=== PATIENT | female | born 2000 | race Caucasian/White ===

== ENCOUNTER 2018-10-20 09:31 | Observation (INO) ==
--- NOTE | 2018-10-20 09:57 | ED ---
HPI General Chief Complaint: Seizure Stated Complaint: Poss seizure Time Seen by Provider: 10/20/18 09:53 Source: family and EMS Mode of arrival: EMS Limitations: altered mental status History of Present Illness HPI Narrative: 18-year-old female patient with history of autism, poor verbal skills, presents to the ER today brought in by EMS after patient's father witnessed an apparent seizure, and then she was unresponsive for a few minutes, he had started CPR because he thought that she was not breathing, but then apparently she started to breathe on her own and had a pulse. EMS states that she is currently awake, but nonverbal to them, which apparently is her baseline according to her mother. This is her first seizure, no previous history. She apparently has been behaving normally prior to this episode. Modifying Factors: None Associated Signs & Symptoms: Seizure new onset Risk Factors: Autism history Related Data Home Medications Medication Instructions Recorded Confirmed No Known Home Medications 10/20/18 10/20/18 Allergies Allergy/AdvReac Type Severity Reaction Status Date / Time No Known Allergies Allergy Verified 10/20/18 10:11 Review of Systems ROS Unobtainable ROS Unobtainable: unobtainable due to mental condition and unobtainable due to mental status PMFSH History History Provided By: Family Member and [employer]er / EMT Medical History Medical History No significant past surgical history (Acute) Autism (Acute) Social History Social History Substance History: No History of Abuse Second Hand Smoke Exposure: No Smoking Status: Never smoker How Often Do You Have a Drink Containing Alcohol: Never Recent Travel in [facility] within the Last 8 Weeks: No Recent Out of Country Travel within the Last 8 Weeks: No Exam Narrative Exam Narrative: GENERAL: Autistic young female patient currently and mild distress. Awake, alert, nonverbal. SKIN: Focused skin assessment warm/dry. HEAD: Atraumatic. Normocephalic. EYES: Pupils equal and round. No scleral icterus. No injection or drainage. ENT: No nasal bleeding or discharge. Mucous membranes pink and moist. NECK: Trachea midline. No JVD. CARDIOVASCULAR: Regular rate and rhythm. No murmur appreciated. RESPIRATORY: No accessory muscle use. Clear to auscultation. Breath sounds equal bilaterally. GASTROINTESTINAL: Abdomen soft, non-tender, nondistended. Hepatic and splenic margins not palpable. MUSCULOSKELETAL: No obvious deformities. No clubbing. No cyanosis. No edema. NEUROLOGICAL: Awake and alert. Unable to follow commands, unable to assess fully, appears to be moving all 4 extremities. PSYCHIATRIC: Autistic, nonverbal, baseline. Course Initial Documented Vital Signs Pulse Rate 96 H 10/20/18 09:53 Pulse Oximetry 100 10/20/18 09:53 Last Documented Vital Signs Temperature 97.8 F 10/20/18 10:57 Pulse Rate 94 H 10/20/18 10:57 Respiratory Rate 16 10/20/18 10:57 Blood Pressure 118/70 10/20/18 10:57 Pulse Oximetry 100 10/20/18 10:57 Medical Decision Making MDM Narrative Medical decision making narrative: EKG shows a sinus rhythm. Vital signs are stable in the ER. Lab work was fairly unremarkable and CT of the brain did not show any signs of acute intracranial processes. She is back to her baseline according to mom in the ER. At this point, this appears to be a new onset seizure and my plan would be to admit the patient for further evaluation. Case is discussed with family practice resident service for admission. Medical Screen Exam Complete: Yes Emergency Medical Condition: Yes Differential Diagnosis Differential Diagnosis: New onset seizure versus electrolyte abnormalities versus acute intracranial processes Lab Data Lab results reviewed: Yes I reviewed the patient's lab results. Result diagrams: 10/20/18 10:00 10/20/18 10:00 POC Results POC Urine Results Negative Lab Results 10/20/18 10/20/18 10/20/18 Range/Units 10:00 10:00 10:00 WBC 7.9 (4.0-11.0) th/mm3 RBC 4.44 (4.00-5.30) mil/mm3 Hgb 11.3 L (11.6-15.3) gm/dL Hct 35.7 (35.0-46.0) % MCV 80.4 (80.0-100.0) fL MCH 25.4 L (27.0-34.0) pg MCHC 31.6 L (32.0-36.0) % RDW 13.6 (11.6-17.2) % Plt Count 338 (150-450) th/mm3 MPV 8.2 (7.0-11.0) fL Neut % (Auto) 79.1 H (16.0-70.0) % Lymph % (Auto) 13.1 (9.0-44.0) % [place] % (Auto) 4.3 (0.0-8.0) % Eos % (Auto) 2.6 (0.0-4.0) % Baso % (Auto) 0.9 (0.0-2.0) % Neut # (Auto) 6.2 (1.8-7.7) th/mm3 Lymph # (Auto) 1.0 (1.0-4.8) th/mm3 [place] # (Auto) 0.3 (0.0-0.9) th/mm3 Eos # (Auto) 0.2 (0.0-0.4) th/mm3 Baso # (Auto) 0.1 (0.0-0.2) th/mm3 WBC Differential . Differential Comment Auto diff final Sodium 140 (136-145) meq/L Potassium 4.1 (3.5-5.1) meq/L Chloride 106 (98-107) meq/L Carbon Dioxide 27.6 (21.0-32.0) meq/L Anion Gap 6 (5-15) meq/L BUN 8 (7-18) mg/dL Creatinine 0.62 (0.50-1.00) mg/dL Estimated GFR Greater than 89 (>89) mL/min Random Glucose 95 (74-106) mg/dL Calcium 8.8 (8.5-10.1) mg/dL Magnesium 2.0 (1.5-2.5) mg/dL Urine Color (Yellw/Straw) Urine Clarity (Clear) Urine pH (5.0-8.5) Ur Specific [place] (1.002-1.035) Urine Protein (Neg-Trace) mg/dL Urine Glucose (UA) (Negative) mg/dL Urine Ketones (Negative) mg/dL Urine Occult Blood (Negative) Urine Nitrate (Negative) Urine Bilirubin (Negative) Urine Urobilinogen (Less than 2) mg/dL Ur Leukocyte Esterase (Negative) Urine RBC (0-3) /hpf Urine WBC (0-5) /hpf Ur Squamous Epith Cells (0-5) /hpf Urine Mucus (Occasional) /lpf Ur Microscopic Review Urine Opiates Screen Neg (Neg) Ur Barbiturates Screen Neg (Neg) Ur Amphetamines Screen Neg (Neg) U Benzodiazepines Scrn Neg (Neg) Urine Cocaine Screen Neg (Neg) U Cannabinoids Screen Neg (Neg) 10/20/18 Range/Units 10:00 WBC (4.0-11.0) th/mm3 RBC (4.00-5.30) mil/mm3 Hgb (11.6-15.3) gm/dL Hct (35.0-46.0) % MCV (80.0-100.0) fL MCH (27.0-34.0) pg MCHC (32.0-36.0) % RDW (11.6-17.2) % Plt Count (150-450) th/mm3 MPV (7.0-11.0) fL Neut % (Auto) (16.0-70.0) % Lymph % (Auto) (9.0-44.0) % [place] % (Auto) (0.0-8.0) % Eos % (Auto) (0.0-4.0) % Baso % (Auto) (0.0-2.0) % Neut # (Auto) (1.8-7.7) th/mm3 Lymph # (Auto) (1.0-4.8) th/mm3 [place] # (Auto) (0.0-0.9) th/mm3 Eos # (Auto) (0.0-0.4) th/mm3 Baso # (Auto) (0.0-0.2) th/mm3 WBC Differential Differential Comment Sodium (136-145) meq/L Potassium (3.5-5.1) meq/L Chloride (98-107) meq/L Carbon Dioxide (21.0-32.0) meq/L Anion Gap (5-15) meq/L BUN (7-18) mg/dL Creatinine (0.50-1.00) mg/dL Estimated GFR (>89) mL/min Random Glucose (74-106) mg/dL Calcium (8.5-10.1) mg/dL Magnesium (1.5-2.5) mg/dL Urine Color Yellow (Yellw/Straw) Urine Clarity Clear (Clear) Urine pH 7.0 (5.0-8.5) Ur Specific [place] 1.018 (1.002-1.035) Urine Protein Negative (Neg-Trace) mg/dL Urine Glucose (UA) Negative (Negative) mg/dL Urine Ketones Negative (Negative) mg/dL Urine Occult Blood Negative (Negative) Urine Nitrate Negative (Negative) Urine Bilirubin Negative (Negative) Urine Urobilinogen Less than 2 (Less than 2) mg/dL Ur Leukocyte Esterase Negative (Negative) Urine RBC 1 (0-3) /hpf Urine WBC 1 (0-5) /hpf Ur Squamous Epith Cells 3 (0-5) /hpf Urine Mucus Few H (Occasional) /lpf Ur Microscopic Review Not Reportable Urine Opiates Screen (Neg) Ur Barbiturates Screen (Neg) Ur Amphetamines Screen (Neg) U Benzodiazepines Scrn (Neg) Urine Cocaine Screen (Neg) U Cannabinoids Screen (Neg) Imaging Data Attestation: I personally reviewed and interpreted this imaging study as follows : Radiologist's impression: Head CT 10/20/18 09:53 CONCLUSION: 1. Diffuse sinusitis. Otherwise negative exam. . ECG Data Attestation: I personally reviewed and interpreted this ECG as follows: Interpretation: EKG shows NSR, no ST elevation or depression, and no arrhythmias. No significant T-wave inversions. Discharge Plan Discharge Disposition Patient Disposition: ED Admit(ED Internal Use Only) Discharge Condition Condition: Stable Discharge Order Discharge Orders: ED Use Only Admit Order (Routine); Ordered 10/20/18 Ordered By: Juan Yu Discharge Details Anticipated Discharge Date: 10/20/18 Diagnosis: New onset seizure Physicians Team ED Provider: Juan Yu Primary Care Provider: Primary Care Lami,Aida Rxs /Orders / Referrals /Forms Prescriptions: No Action No Known Home Medications RF: 0 Status ED Status: With Doctor
[2018-10-20 10:19] LABS: Baso # (Auto) 0.1 th/mm3 (0.0-0.2); Baso % (Auto) 0.9 % (0.0-2.0); Eos # (Auto) 0.2 th/mm3 (0.0-0.4); Eos % (Auto) 2.6 % (0.0-4.0); Hematocrit 35.7 % (35.0-46.0); Hemoglobin 11.3 gm/dL (11.6-15.3); Lymph % (Auto) 13.1 % (9.0-44.0); Mean Corpuscular HGB Conc 31.6 % (32.0-36.0); Mean Corpuscular Hemoglobin 25.4 pg (27.0-34.0); Mean Corpuscular Volume 80.4 fL (80.0-100.0); Mean Platelet Volume 8.2 fL (7.0-11.0); Mono # (Auto) 0.3 th/mm3 (0.0-0.9); Mono % (Auto) 4.3 % (0.0-8.0); Neut # (Auto) 6.2 th/mm3 (1.8-7.7); Neut % (Auto) 79.1 % (16.0-70.0); Platelet Count 338 th/mm3 (150-450); Red Blood Count 4.44 mil/mm3 (4.00-5.30); Red Cell Distribution Width 13.6 % (11.6-17.2); White Blood Count 7.9 th/mm3 (4.0-11.0)
[2018-10-20 10:33] LABS: Bilirubin,Urine Negative (Negative); Clarity,Urine Clear (Clear); Color,Urine Yellow (Yellw/Straw); Glucose,Urine (UA) Negative (Negative); Leukocyte Esterase,Urine Negative (Negative); Mucus,Urine Few /lpf (Occasional); Nitrite,Urine Negative (Negative); Specific Gravity,Urine 1.018 (1.002-1.035); Squamous Epithelial Cell,Urine 3 /hpf (0-5)
[2018-10-20 10:36] LABS: Amphetamine Screen,Urine Neg (Neg); Barbiturate Screen,Urine Neg (Neg); Cannabinoid Screen,Urine Neg (Neg); Cocaine Screen,Urine Neg (Neg)
[2018-10-20 10:37] LABS: Anion Gap 6 meq/L (5-15); Blood Urea Nitrogen 8 mg/dL (7-18); Calcium 8.8 mg/dL (8.5-10.1); Carbon Dioxide 27.6 meq/L (21.0-32.0); Chloride 106 meq/L (98-107); Glomerular Filtration Rate Greater Than 89 mL/min (>89); Glucose,Random 95 mg/dL (74-106); Opiate Screen,Urine Neg (Neg); Potassium 4.1 meq/L (3.5-5.1); Sodium 140 meq/L (136-145)
--- NOTE | 2018-10-20 11:20 | CT ---
EXAM DATE: 10/20/2018 11:11 AM EST AGE/SEX: 18 years / Female INDICATIONS: Seizure. CLINICAL DATA: This is the patient's initial encounter. Patient reports that signs and symptoms have been present for 1 day and indicates a pain score of 0/10. MEDICAL/SURGICAL HISTORY: . Autism. None. RADIATION DOSE: 41.58 CTDI (mGy) COMPARISON: No prior exams available for comparison. TECHNIQUE: CT of the head without contrast. Using automated exposure control and adjustment of the mA and/or kV according to patient size, radiation dose was kept as low as reasonably achievable to ob tain optimal diagnostic quality images. DICOM format image data is available electronically for revi ew and comparison. FINDINGS: Cerebrum: The ventricles are normal for age. No evidence of midline shift, mass lesion, hemorrhage or acute infarction. No extraaxial fluid collections are seen. Posterior Fossa: The cerebellum and brainstem are intact. The 4th ventricle is midline. The cerebe llopontine angle is unremarkable. Extracranial: The visualized portion of the orbits is intact. There is moderate bilateral mucoperios teal thickening identified within the bilateral maxillary sinuses as well as the ethmoid air cells. A ir-fluid levels are seen within the sphenoid sinuses. The frontal sinuses demonstrate mild mucoperios teal thickening. Skull: The calvaria is intact. No evidence of skull fracture. CONCLUSION: 1. Diffuse sinusitis. Otherwise negative exam. . Electronically signed by: Shaylee Russo MD Board Certified Radiologist 10/20/2018 11:19 AM JIHAN Hinojosa
--- NOTE | 2018-10-20 11:59 | P.HPFP ---
History of Present Illness Primary Care Physician: No Primary Care Physician <Sd Ferreira - 10/21/18 19:02> No Primary Care Physician <Gabriela Weller - 10/20/18 11:59> History of Present Illness: 18 year old female with PMH of autism presents with new onset seizure that happened around 8:45 am. Mom was not present for witnessed seizure and patient is non verbal. Father witnessed seizure. Per dad, the patient was sitting down and watching music videos. She usually bobs her head at baseline, and dad thought initially that she was bobbing her head to the music. She then started twitching her arms first and then progressed to her whole body. Her eyes rolled back into her head and she seemed to lose consciousness. Denies head trauma. Dad states that at the time she stopped breathing, and he started doing mouth to mouth resuscitation through her nose and tried to do some chest compression. He said that the episode lasted 15 minutes but mom questions the length of time the daughter seized and believes it was 5-10 minutes. EMS arrived within 5 minutes, she seemed to be alert and back to baseline at that time. Glucose test was normal. Vomited x2 since arrival. Slightly blood tinged with last emesis. Denies any illnesses recently. Denies any loss of bladder/bowel function during episode. Denies any tongue lacerations during the episode. PMH: Autism. PSH: No Allergies: NKDA Meds: None Social: lives at home with mom and dad and 1 older and 2 younger brothers. Goes to school, positive sick contacts at schools. Vaccinations UTD. No PCP. No exposures to toxins recently. Sees menstrual period regularly, last cycle a couple a days ago and was normal. Diagnosed with autism in [place] at 1 years old. Fam Hx: Father has Diabetes. Brother has febrile seizures and severe autism. Oldest and youngest brother with speech delay. Mother is legal guardian. Never been legally cleared incompetent. ROS: No fevers, night sweats, weight loss. <Gabriela Weller - 10/20/18 16:06> - Diagnosis (1) New onset seizure (2) Murmur, cardiac (3) Sinusitis (4) Autism (5) DVT prophylaxis (6) Nutrition, metabolism, and development symptoms <Sd Ferreira - 10/21/18 19:02> (1) New onset seizure (2) Murmur, cardiac (3) Sinusitis (4) Autism (5) DVT prophylaxis (6) Nutrition, metabolism, and development symptoms <Gabriela Weller 10/20/18 16:07> PMFSH - History History Provided By: Family Member, [employer] / EMT <Gabriela Weller 10/20 11:59> - Medical History Medical History: Medical History (Last Updated 10/20/18 @ 10:16 by Alexandra Torres) No significant past surgical history Autism <Sd Ferreira 10/21/18 19:02> Medical History (Last Updated 10/20/18 @ 10:16 by Alexandra Torres) No significant past surgical history Autism <Gabriela Weller 10/20/18 11:59> - Tobacco History Second Hand Smoke Exposure: No <Gabriela Weller 10/20/18 11:59> Tobacco Use In Past 30 Days: No <Gabriela Weller 10/20/18 11:59> Smoking Status: Never smoker <Gabriela Weller 10/20/18 11:59> - Alcohol History How Often Do You Have a Drink Containing Alcohol: Never <Gabriela Weller 10/20/18 11:59> - Substance Use History Substance History: No History of Abuse <Gabriela Weller 10/20/18 11:59> - Travel History Recent Travel in the [facility] Within the Last 8 Weeks: No <Gabriela Weller 09/26 11:59> Recent Travel Out of the Country Within the Last 8 Weeks: No <Gabriela Weller 10/20/18 11:59> - Immunization History Tetanus Immunization: <5 Years <Gabriela Weller 10/20/18 11:59> Medications and Allergies Allergies Allergy/AdvReac Type Severity Reaction Status Date / Time No Known Allergies Allergy Verified 10/20/18 10:11 <Sd Ferreira 10/21/18 19:02> Home Medications Medication Instructions Recorded Confirmed Type No Known Home Medications 10/20/18 10/20/18 History <Sd Ferreira 10/21/18 19:02> Active Medications: Active Medications Acetaminophen (Tylenol) 650 mg PO Q4H PRN PRN Reason: Temp > 100.4 Al Hydroxide/Mg Hydroxide (Milk Of Magnesia Liq) 30 ml PO Q12H PRN PRN Reason: Mild Constipation Bisacodyl (Dulcolax Supp) 10 mg RECTAL DAILY PRN PRN Reason: SEVERE CONSITIPATION Enoxaparin Sodium (Lovenox Inj) 40 mg SQ Q24H [facility] Last Admin: 10/21/18 12:41 Dose: 40 mg Fluticasone Propionate (Flonase Nasal [place]) 1 spray NASAL BID [facility] Last Admin: 10/21/18 09:56 Dose: 1 spray Lactulose (Lactulose Liq) 30 ml PO DAILY PRN PRN Reason: SEVERE CONSITIPATION Levetiracetam (Keppra) 500 mg PO BID [facility] Last Admin: 10/21/18 09:56 Dose: 500 mg Lorazepam (Ativan Inj) 2 mg IV.PUSH Q10M PRN PRN Reason: SEE LABEL COMMENTS Ondansetron HCl (Zofran Inj) 4 mg IV.PUSH Q6H PRN PRN Reason: NAUSEA OR VOMITING Senna/Docusate Sodium (Ana-Colace) 1 tab PO BID [facility] Last Admin: 10/21/18 09:56 Dose: Not Given Sennosides (Senokot) 17.2 mg PO Q12H PRN PRN Reason: Moderate Constipation Sodium Chloride (Ns Flush) 2 ml IV.FLUSH PRN PRN PRN Reason: FLUSH AFTER USING IV ACCESS Last Admin: 10/20/18 10:52 Dose: 2 ml Sodium Chloride (Ns Flush) 2 ml IV.FLUSH BID [facility] Last Admin: 10/21/18 10:00 Dose: 2 ml Sodium Chloride (Ns Flush) 2 ml IV.FLUSH PRN PRN PRN Reason: FLUSH AFTER USING IV ACCESS <Sd Ferreira - 10/21/18 19:02> Active Medications Sodium Chloride (Ns Flush) 2 ml IV.FLUSH PRN PRN PRN Reason: FLUSH AFTER USING IV ACCESS Last Admin: 10/20/18 10:52 Dose: 2 ml <Gabriela Weller - 10/20/18 11:59> Exam Vital signs: Vital Signs 10/20/18 20:00 10/20/18 23:26 10/21/18 03:40 Temperature 99.5 F 98.2 F Pulse Rate 95 H 101 H 77 Respiratory Rate 12 16 12 Blood Pressure 104/60 128/61 106/51 L Pulse Oximetry 98 98 99 10/21/18 08:00 10/21/18 12:00 10/21/18 16:00 Temperature 98.3 F Pulse Rate 73 84 97 H Respiratory Rate 16 16 16 Blood Pressure 101/59 L 111/61 117/65 Pulse Oximetry 98 96 96 Intake & Output 10/21/18 10/21/18 10/22/18 06:59 18:59 06:59 Other: Date of Last Bowel Movement 10/20/18 10/20/18 <Sd Ferreira - 10/21/18 19:02> Vital Signs 10/20/18 09:53 10/20/18 09:55 10/20/18 10:57 Temperature 98.3 F 97.8 F Pulse Rate 96 H 96 H 94 H Respiratory Rate 17 16 Blood Pressure 104/58 L 118/70 Pulse Oximetry 100 100 100 Intake & Output 10/19/18 10/20/18 10/20/18 18:59 06:59 18:59 Weight 95.254 kg <Gabriela Weller - 10/20/18 11:59> Narrative: GENERAL: Obese appearing female, bobbing her head in bed, nonverbal, in no acute distress. SKIN: Warm and dry. HEAD: Normocephalic. No tongue lacerations appreciated. EYES: No scleral icterus. No injection or drainage. NECK: Supple, trachea midline. No JVD or lymphadenopathy. CARDIOVASCULAR: Grade 2 out of 5 systolic murmur appreciated at the right sternal border. No radiation. Regular rate. No tenderness to palpation of the sternum or R sided chest wall. Patient moved examiner's hand away during left sided chest wall palpation. RESPIRATORY: Breath sounds equal bilaterally. No accessory muscle use. GASTROINTESTINAL: Abdomen soft, non-tender, nondistended. MUSCULOSKELETAL: No cyanosis, or edema. BACK: Nontender without obvious deformity. No CVA tenderness. <Gabriela Weller - 10/20/18 15:57> Results - Labs Result diagrams: 10/21/18 06:30 10/21/18 06:30 <Sd Ferreira L - 10/21/18 19:02> Abnormal lab results 10/21/18 10/21/18 Range/Units 06:30 06:30 Hgb 10.7 L (11.6-15.3) gm/dL Hct 32.7 L (35.0-46.0) % MCV 78.6 L (80.0-100.0) fL MCH 25.6 L (27.0-34.0) pg Neut % (Auto) 73.9 H (16.0-70.0) % Creatinine 0.47 L (0.50-1.00) mg/dL AST 9 L (16-38) U/L Albumin 3.3 L (3.4-5.0) g/dL Short CBC 10/21/18 Range/Units 06:30 WBC 8.1 (4.0-11.0) th/mm3 Hgb 10.7 L (11.6-15.3) gm/dL Hct 32.7 L (35.0-46.0) % Plt Count 323 (150-450) th/mm3 [facility] 10/21/18 06:30 Sodium 141 Potassium 3.6 Chloride 107 Carbon Dioxide 26.8 BUN 9 Creatinine 0.47 L Calcium 8.6 Liver Function 10/21/18 Range/Units 06:30 Total Bilirubin 0.4 (0.2-1.0) mg/dL AST 9 L (16-38) U/L ALT 15 (9-42) U/L Alkaline Phosphatase 79 (45-117) U/L Albumin 3.3 L (3.4-5.0) g/dL <JhonSd L - 10/21/18 19:02> Abnormal lab results 10/20/18 10/20/18 Range/Units 10:00 10:00 Hgb 11.3 L (11.6-15.3) gm/dL MCH 25.4 L (27.0-34.0) pg MCHC 31.6 L (32.0-36.0) % Neut % (Auto) 79.1 H (16.0-70.0) % Urine Mucus Few H (Occasional) /lpf Short CBC 10/20/18 Range/Units 10:00 WBC 7.9 (4.0-11.0) th/mm3 Hgb 11.3 L (11.6-15.3) gm/dL Hct 35.7 (35.0-46.0) % Plt Count 338 (150-450) th/mm3 BMP 10/20/18 10:00 Sodium 140 Potassium 4.1 Chloride 106 Carbon Dioxide 27.6 BUN 8 Creatinine 0.62 Calcium 8.8 Urine 10/20/18 Range/Units 10:00 Urine Color Yellow (Yellw/Straw) Urine Clarity Clear (Clear) Urine pH 7.0 (5.0-8.5) Ur Specific [place] 1.018 (1.002-1.035) Urine Protein Negative (Neg-Trace) mg/dL Urine Glucose (UA) Negative (Negative) mg/dL <Gabriela Weller 10/20/18 11:59> - Imaging Impressions Head CT 10/20/18 09:53 CONCLUSION: 1. Diffuse sinusitis. Otherwise negative exam. . <Gabriela Weller 10/20/18 11:59> Caprini VTE Risk Assessment Caprini VTE Risk Assessment: No/Low Risk (score <= 1) <Gabriela Weller - 09/26 15:56> Caprini Risk Assessment Model: Point Value = 1 Point Value = 2 Point Value = 3 Point Value = 5 Age 41-60 Minor surgery BMI > 25 kg/m2 Swollen legs Varicose veins or History of unexplained or recurrent spontaneous Oral contraceptives or hormone replacement Sepsis (< 1 month) Serious lung disease, including pneumonia (< 1 month) Abnormal pulmonary function Acute myocardial infarction Congestive heart failure (< 1 month) History of inflammatory bowel disease Medical patient at bed rest Age 61-74 Arthroscopic surgery Major open surgery (> 45 min) Laparoscopic surgery (> 45 min) Malignancy Confined to bed (> 72 hours) Immobilizing plaster cast Central venous access Age >= 75 History of VTE Family history of VTE Factor V Leiden Prothrombin [id number] Lupus anticoagulant Anticardiolipin antibodies Elevated serum homocysteine Heparin-induced thrombocytopenia Other congenital or acquired thrombophilia Stroke (< 1 month) Elective arthroplasty Hip, pelvis, or leg fracture Acute spinal cord injury (< 1 month) <Sd Ferreira - 10/21/18 19:02> Point Value = 1 Point Value = 2 Point Value = 3 Point Value = 5 Age 41-60 Minor surgery BMI > 25 kg/m2 Swollen legs Varicose veins or History of unexplained or recurrent spontaneous Oral contraceptives or hormone replacement Sepsis (< 1 month) Serious lung disease, including pneumonia (< 1 month) Abnormal pulmonary function Acute myocardial infarction Congestive heart failure (< 1 month) History of inflammatory bowel disease Medical patient at bed rest Age 61-74 Arthroscopic surgery Major open surgery (> 45 min) Laparoscopic surgery (> 45 min) Malignancy Confined to bed (> 72 hours) Immobilizing plaster cast Central venous access Age >= 75 History of VTE Family history of VTE Factor V Leiden Prothrombin [id number] Lupus anticoagulant Anticardiolipin antibodies Elevated serum homocysteine Heparin-induced thrombocytopenia Other congenital or acquired thrombophilia Stroke (< 1 month) Elective arthroplasty Hip, pelvis, or leg fracture Acute spinal cord injury (< 1 month) <Gabriela Weller - 10/20/18 11:59> Prophylaxis Regimen: Total Risk Factor Score Risk Level Prophylaxis Regimen 0-1 Low Early ambulation 2 Moderate Order ONE of the following: *Sequential Compression Device (SCD) *Heparin 5000 units SQ BID 3-4 Higher Order ONE of the following medications: *Heparin 5000 units SQ TID *Enoxaparin/Lovenox 40 mg SQ daily (WT < 150 kg, CrCl > 30 mL/min) *Enoxaparin/Lovenox 30 mg SQ daily (WT < 150 kg, CrCl > 10-29 mL/min) *Enoxaparin/Lovenox 30 mg SQ BID (WT < 150 kg, CrCl > 30 mL/min) AND/OR *Sequential Compression Device (SCD) 5 or more Highest Order ONE of the following medications: *Heparin 5000 units SQ TID (Preferred with Epidurals) *Enoxaparin/Lovenox 40 mg SQ daily (WT < 150 kg, CrCl > 30 mL/min) *Enoxaparin/Lovenox 30 mg SQ daily (WT < 150 kg, CrCl > 10-29 mL/min) *Enoxaparin/Lovenox 30 mg SQ BID (WT < 150 kg, CrCl > 30 mL/min) AND *Sequential Compression Device (SCD) <Sd Ferreira - 10/21/18 19:02> Total Risk Factor Score Risk Level Prophylaxis Regimen 0-1 Low Early ambulation 2 Moderate Order ONE of the following: *Sequential Compression Device (SCD) *Heparin 5000 units SQ BID 3-4 Higher Order ONE of the following medications: *Heparin 5000 units SQ TID *Enoxaparin/Lovenox 40 mg SQ daily (WT < 150 kg, CrCl > 30 mL/min) *Enoxaparin/Lovenox 30 mg SQ daily (WT < 150 kg, CrCl > 10-29 mL/min) *Enoxaparin/Lovenox 30 mg SQ BID (WT < 150 kg, CrCl > 30 mL/min) AND/OR *Sequential Compression Device (SCD) 5 or more Highest Order ONE of the following medications: *Heparin 5000 units SQ TID (Preferred with Epidurals) *Enoxaparin/Lovenox 40 mg SQ daily (WT < 150 kg, CrCl > 30 mL/min) *Enoxaparin/Lovenox 30 mg SQ daily (WT < 150 kg, CrCl > 10-29 mL/min) *Enoxaparin/Lovenox 30 mg SQ BID (WT < 150 kg, CrCl > 30 mL/min) AND *Sequential Compression Device (SCD) <Gabriela Weller - 10/20/18 11:59> Assessment and Plan - Assessment (1) New onset seizure Code(s): R56.9 - Unspecified convulsions Status: Acute (2) Murmur, cardiac Code(s): R01.1 - Cardiac murmur, unspecified Status: Acute (3) Sinusitis Code(s): J32.9 - Chronic sinusitis, unspecified Status: Acute (4) Autism Code(s): F84.0 - Autistic disorder Status: Acute (5) DVT prophylaxis Status: Acute (6) Nutrition, metabolism, and development symptoms Code(s): R63.8 - Other symptoms and signs concerning food and fluid intake Status: Acute <JhonSd Han - 10/21/18 19:02> (1) New onset seizure Code(s): R56.9 - Unspecified convulsions Status: Acute Plan: 18-year-old female with past medical history of autism, family history of seizures, presents with new onset witnessed seizure that lasted approximately 5- 10 minutes. Seems partial with secondary generalization seizure. -Patient currently at baseline per family. -Neurology consulted. Appreciate recommendations -EEG ordered. -Hb low. Recent menstrual cycle. Iron Studies Ordered. -B12/thiamine/alcohol level ordered. -BHcG negative. -Seizure precautions. -Neurochecks every 4 -Glucose normal. Electrolytes within normal limits. Follow-up in a.m. -UDS negative. UA unremarkable. -CT head shows no abnormalities. Sinusitis. -Ativan 2 mg as needed for seizures. (2) Murmur, cardiac Code(s): R01.1 - Cardiac murmur, unspecified Status: Acute Plan: Grade 2 out of 5 systolic murmur appreciated on the right sternal border. EKG shows normal sinus sinus rhythm. Troponin ordered follow-up. Echocardiogram ordered. Rule out any arrhythmias/valvular abnormalities that could have caused syncope. (3) Sinusitis Code(s): J32.9 - Chronic sinusitis, unspecified Status: Acute Plan: CT head shows sinusitis. Flonase ordered. (4) Autism Code(s): F84.0 - Autistic disorder Status: Acute Plan: 18 year-old female with no past medical history diagnosed with autism at 1 years old in [place]. Family history significant for seizures in brother. -Per family, patient currently at baseline. -At baseline patient bobs her head and rocks back and forth. Also has minimal leg shaking at baseline. -Currently stable. Continue to monitor. -Patient nonverbal but can follow commands. (5) DVT prophylaxis Status: Acute Plan: Lovenox 40 (6) Nutrition, metabolism, and development symptoms Code(s): R63.8 - Other symptoms and signs concerning food and fluid intake Status: Acute Plan: Fluids: Encourage p.o. intake Electrolytes: Within normal limits. Monitor and replete as needed. Nutrition: Regular diet. <Gabriela Weller - 10/20/18 16:07> - Attending Attestation The exam, history, and the medical decision-making described in the above note were completed with the assistance of the resident physician. I reviewed and agree with the findings presented. I attest that I had a [id number] encounter with the patient on the same day, and personally performed and documented my assessment and findings in the medical record. Patient with history of neurodevelopmental disorder (developed normally until about 18 months old, then regressed, first linguistically then otherwise), never formally diagnosed, presents with possible seizure. MRI will be difficult to obtain as she moves her head continuously at baseline. Agree with EEG for further analysis. Continue workup for metabolic and toxic causes of seizure. This is a new onset seizure for her, if indeed a seizure, and she may benefit from antiseizure medication. Will defer that decision to neurology as there is a chance she does not go on to develop epilepsy. Also discussed importance of genetic counseling given the high number of neurodevelopmental problems in offspring. <Sd Ferreira - 10/21/18 19:02>
[2018-10-20] MEDS ORDERED: Acetaminophen 325 MG Tablet PO PRN (12:20)
[2018-10-20] MEDS ORDERED: Bisacodyl 10 MG Supp RECTAL PRN (12:20)
[2018-10-20] MEDS: Enoxaparin Inj 40 MG/0.4 ML Syringe SQ SCH (12:48)
--- NOTE | 2018-10-20 12:58 | XR ---
EXAM DATE: 10/20/2018 12:54 PM EST AGE/SEX: 18 years / Female INDICATIONS: . Concern for rib fracture post CPR. CLINICAL DATA: This is the patient's initial encounter. Patient reports that signs and symptoms have been present for 1 day and indicates a pain score of Nonresponsive. MEDICAL/SURGICAL HISTORY: . Autism. None. COMPARISON: No prior exams available for comparison. FINDINGS: PA and lateral views of the chest demonstrate the lungs to be symmetrically aerated without evidence of mass, infiltrate or effusion. The cardiomediastinal contours are unremarkable. Osseous structures are intact. CONCLUSION: No acute cardiopulmonary process. No fracture. Electronically signed by: Salvador Navarrete MD Board Certified Radiologist 10/20/2018 12:57 PM EST
[2018-10-20 14:05] LABS: Vitamin B12 601 pg/mL (193-986)
[2018-10-20 14:07] LABS: Creatine Kinase 66 U/L (26-192)
--- NOTE | 2018-10-20 15:31 | P.CONNEU ---
History of Present Illness Service: Neurology Primary Care Provider: No Primary Care Physician Chief Complaint: sz History of Present Illness: 18-year-old female admitted for possible seizure. Apparently observed by family having convulsive type activity. Watching music videos and her father noticed her to have twitching movements of her upper extremity as well as worsening tremors of the head and neck. Is never had this happen to her before. She does have underlying history of static encephalopathy nonverbal autism. They states she was not doing anything out of the ordinary or unusual. No change in medications. CT brain scan showing sinusitis no acute lesion. Labs normal including sodium glucose magnesium and calcium. Afebrile no leukocytosis. She has a brother who has autism as well and had febrile seizures but none currently. Neither parent has any history of epilepsy. Review of Systems All other systems reviewed negative except as stated in HPI [facility] - History History Provided By: Family Member, Explosive Technician / EMT - Medical History Medical History: Medical History (Last Updated 10/20/18 @ 10:16 by Alexandra Torres) No significant past surgical history Autism - Tobacco History Second Hand Smoke Exposure: No Tobacco Use In Past 30 Days: No Smoking Status: Never smoker - Alcohol History How Often Do You Have a Drink Containing Alcohol: Never - Substance Use History Substance History: No History of Abuse - Travel History Recent Travel in the [place] Within the Last 8 Weeks: No Recent Travel Out of the Country Within the Last 8 Weeks: No - Immunization History Tetanus Immunization: <5 Years Medications and Allergies Active Medications: Active Medications Acetaminophen (Tylenol) 650 mg PO Q4H PRN PRN Reason: Temp > 100.4 Al Hydroxide/Mg Hydroxide (Milk Of Magnesia Liq) 30 ml PO Q12H PRN PRN Reason: Mild Constipation Bisacodyl (Dulcolax Supp) 10 mg RECTAL DAILY PRN PRN Reason: SEVERE CONSITIPATION Enoxaparin Sodium (Lovenox Inj) 40 mg SQ Q24H [facility] Last Admin: 10/20/18 12:48 Dose: 40 mg Lactulose (Lactulose Liq) 30 ml PO DAILY PRN PRN Reason: SEVERE CONSITIPATION Lorazepam (Ativan Inj) 2 mg IV.PUSH Q10M PRN PRN Reason: SEE LABEL COMMENTS Ondansetron HCl (Zofran Inj) 4 mg IV.PUSH Q6H PRN PRN Reason: NAUSEA OR VOMITING Senna/Docusate Sodium (Ana-Colace) 1 tab PO BID [facility]AS[facility] Sennosides (Senokot) 17.2 mg PO Q12H PRN PRN Reason: Moderate Constipation Sodium Chloride (Ns Flush) 2 ml IV.FLUSH PRN PRN PRN Reason: FLUSH AFTER USING IV ACCESS Last Admin: 10/20/18 10:52 Dose: 2 ml Sodium Chloride (Ns Flush) 2 ml IV.FLUSH BID TREASURE Sodium Chloride (Ns Flush) 2 ml IV.FLUSH PRN PRN PRN Reason: FLUSH AFTER USING IV ACCESS Allergies Allergy/AdvReac Type Severity Reaction Status Date / Time No Known Allergies Allergy Verified 10/20/18 10:11 Home Medications Medication Instructions Recorded Confirmed Type No Known Home Medications 10/20/18 10/20/18 History Exam Vital signs: Vital Signs 10/20/18 09:53 10/20/18 09:55 10/20/18 10:57 Temperature 98.3 F 97.8 F Pulse Rate 96 H 96 H 94 H Respiratory Rate 17 16 Blood Pressure 104/58 L 118/70 Pulse Oximetry 100 100 100 10/20/18 12:20 Temperature 98 F Pulse Rate 101 H Respiratory Rate 16 Blood Pressure 109/76 Pulse Oximetry 100 Intake & Output 10/19/18 10/20/18 10/20/18 18:59 06:59 18:59 Weight 95.254 kg Narrative: Awake, looks comfortable, nonverbal mild end gaze nystagmus, face symmetric moves all extremities, no involuntary movements - Constitutional no acute distress - Routine HEENT Exam Head: Present: normocephalic Eye: Present: EOMI Results - Labs CBC & Chem 7: 10/20/18 10:00 10/20/18 10:00 Labs: Laboratory Results - last 24 hr 10/20/18 10/20/18 10/20/18 10:00 10:00 10:00 WBC 7.9 RBC 4.44 Hgb 11.3 L Hct 35.7 MCV 80.4 MCH 25.4 L MCHC 31.6 L RDW 13.6 Plt Count 338 MPV 8.2 Neut % (Auto) 79.1 H Lymph % (Auto) 13.1 [place] % (Auto) 4.3 Eos % (Auto) 2.6 Baso % (Auto) 0.9 Neut # (Auto) 6.2 Lymph # (Auto) 1.0 [place] # (Auto) 0.3 Eos # (Auto) 0.2 Baso # (Auto) 0.1 WBC Differential . Differential Comment Auto diff final Sodium 140 Potassium 4.1 Chloride 106 Carbon Dioxide 27.6 Anion Gap 6 BUN 8 Creatinine 0.62 Estimated GFR Greater than 89 Random Glucose 95 Calcium 8.8 Magnesium 2.0 Total Creatine Kinase Troponin I Vitamin B12 Urine Color Urine Clarity Urine pH Ur Specific [place] Urine Protein Urine Glucose (UA) Urine Ketones Urine Occult Blood Urine Nitrate Urine Bilirubin Urine Urobilinogen Ur Leukocyte Esterase Urine RBC Urine WBC Ur Squamous Epith Cells Urine Mucus Ur Microscopic Review Urine Opiates Screen Neg Ur Barbiturates Screen Neg Ur Amphetamines Screen Neg U Benzodiazepines Scrn Neg Urine Cocaine Screen Neg U Cannabinoids Screen Neg Serum Alcohol 10/20/18 10/20/18 10:00 10:00 WBC RBC Hgb Hct MCV MCH MCHC RDW Plt Count MPV Neut % (Auto) Lymph % (Auto) [place] % (Auto) Eos % (Auto) Baso % (Auto) Neut # (Auto) Lymph # (Auto) [place] # (Auto) Eos # (Auto) Baso # (Auto) WBC Differential Differential Comment Sodium Potassium Chloride Carbon Dioxide Anion Gap BUN Creatinine Estimated GFR Random Glucose Calcium Magnesium Total Creatine Kinase 66 Troponin I Less than 0.02 L Vitamin B12 601 Urine Color Yellow Urine Clarity Clear Urine pH 7.0 Ur Specific [place] 1.018 Urine Protein Negative Urine Glucose (UA) Negative Urine Ketones Negative Urine Occult Blood Negative Urine Nitrate Negative Urine Bilirubin Negative Urine Urobilinogen Less than 2 Ur Leukocyte Esterase Negative Urine RBC 1 Urine WBC 1 Ur Squamous Epith Cells 3 Urine Mucus Few H Ur Microscopic Review Not Reportable Urine Opiates Screen Ur Barbiturates Screen Ur Amphetamines Screen U Benzodiazepines Scrn Urine Cocaine Screen U Cannabinoids Screen Serum Alcohol Less than 3 - Imaging Impressions Chest X-Ray 10/20/18 00:00 CONCLUSION: No acute cardiopulmonary process. No fracture. Head CT 10/20/18 09:53 CONCLUSION: 1. Diffuse sinusitis. Otherwise negative exam. . 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 Side effects benefits discussed No further episodes overnight can be discharged home follow-up in the outpatient setting Seizure fall precautions No driving
[2018-10-20 16:17] LABS: % Iron Saturation 20.3 % (20-50)
[2018-10-20] MEDS: levETIRAcetam 500 MG Tablet PO SCH (20:58)
[2018-10-20] MEDS: Senna/Docusate Sodium 8.6/50 MG Tablet PO SCH (21:28)
[2018-10-21 07:49] LABS: Baso # (Auto) 0.1 th/mm3 (0.0-0.2); Baso % (Auto) 0.7 % (0.0-2.0); Eos # (Auto) 0.1 th/mm3 (0.0-0.4); Eos % (Auto) 1.5 % (0.0-4.0); Hematocrit 32.7 % (35.0-46.0); Hemoglobin 10.7 gm/dL (11.6-15.3); Lymph # (Auto) 1.5 th/mm3 (1.0-4.8); Lymph % (Auto) 18.5 % (9.0-44.0); Mean Corpuscular HGB Conc 32.6 % (32.0-36.0); Mean Corpuscular Hemoglobin 25.6 pg (27.0-34.0); Mean Corpuscular Volume 78.6 fL (80.0-100.0); Mean Platelet Volume 8.3 fL (7.0-11.0); Mono # (Auto) 0.4 th/mm3 (0.0-0.9); Mono % (Auto) 5.4 % (0.0-8.0); Neut % (Auto) 73.9 % (16.0-70.0); Platelet Count 323 th/mm3 (150-450); Red Blood Count 4.16 mil/mm3 (4.00-5.30); Red Cell Distribution Width 13.6 % (11.6-17.2); White Blood Count 8.1 th/mm3 (4.0-11.0)
[2018-10-21 08:12] LABS: Alanine Aminotransferase 15 U/L (9-42); Albumin 3.3 g/dL (3.4-5.0); Anion Gap 7 meq/L (5-15); Aspartate Aminotransferase 9 U/L (16-38); Blood Urea Nitrogen 9 mg/dL (7-18); Calcium 8.6 mg/dL (8.5-10.1); Carbon Dioxide 26.8 meq/L (21.0-32.0); Chloride 107 meq/L (98-107); Glomerular Filtration Rate Greater Than 89 mL/min (>89); Glucose,Random 84 mg/dL (74-106); Potassium 3.6 meq/L (3.5-5.1); Sodium 141 meq/L (136-145)
[2018-10-21 08:14] LABS: Alkaline Phosphatase 79 U/L (45-117); Total Protein 7.4 g/dL (6.4-8.2)
[2018-10-21] MEDS: levETIRAcetam 500 MG Tablet PO SCH ×2 (09:56→21:01)
[2018-10-21] MEDS: Senna/Docusate Sodium 8.6/50 MG Tablet PO SCH ×2 (09:56→21:02)
--- NOTE | 2018-10-21 10:41 | P.PNNEU ---
Subjective Subjective Comments: No seizure. Slept well mother at bedside Active Medications: Active Medications Acetaminophen (Tylenol) 650 mg PO Q4H PRN PRN Reason: Temp > 100.4 Al Hydroxide/Mg Hydroxide (Milk Of Magnesia Liq) 30 ml PO Q12H PRN PRN Reason: Mild Constipation Bisacodyl (Dulcolax Supp) 10 mg RECTAL DAILY PRN PRN Reason: SEVERE CONSITIPATION Enoxaparin Sodium (Lovenox Inj) 40 mg SQ Q24H [facility] Last Admin: 10/20/18 12:48 Dose: 40 mg Fluticasone Propionate (Flonase Nasal [place]) 1 spray NASAL BID [facility] Last Admin: 10/21/18 09:56 Dose: 1 spray Lactulose (Lactulose Liq) 30 ml PO DAILY PRN PRN Reason: SEVERE CONSITIPATION Levetiracetam (Keppra) 500 mg PO BID [facility] Last Admin: 10/21/18 09:56 Dose: 500 mg Lorazepam (Ativan Inj) 2 mg IV.PUSH Q10M PRN PRN Reason: SEE LABEL COMMENTS Ondansetron HCl (Zofran Inj) 4 mg IV.PUSH Q6H PRN PRN Reason: NAUSEA OR VOMITING Senna/Docusate Sodium (Ana-Colace) 1 tab PO BID [facility] Last Admin: 10/21/18 09:56 Dose: Not Given Sennosides (Senokot) 17.2 mg PO Q12H PRN PRN Reason: Moderate Constipation Sodium Chloride (Ns Flush) 2 ml IV.FLUSH PRN PRN PRN Reason: FLUSH AFTER USING IV ACCESS Last Admin: 10/20/18 10:52 Dose: 2 ml Sodium Chloride (Ns Flush) 2 ml IV.FLUSH BID [facility] Last Admin: 10/21/18 10:00 Dose: 2 ml Sodium Chloride (Ns Flush) 2 ml IV.FLUSH PRN PRN PRN Reason: FLUSH AFTER USING IV ACCESS Allergies/Adverse Reactions: Allergies Allergy/AdvReac Type Severity Reaction Status Date / Time No Known Allergies Allergy Verified 10/20/18 10:11 Review of Systems All other systems reviewed negative except as stated in HPI Physical Exam Vital signs: Vital Signs 10/20/18 10:57 10/20/18 12:20 10/20/18 16:00 Temperature 97.8 F 98 F 99.0 F Pulse Rate 94 H 101 H 96 H Respiratory Rate 16 16 18 Blood Pressure 118/70 109/76 117/62 Pulse Oximetry 100 100 98 10/20/18 20:00 10/20/18 23:26 10/21/18 03:40 Temperature 99.5 F 98.2 F Pulse Rate 95 H 101 H 77 Respiratory Rate 12 16 12 Blood Pressure 104/60 128/61 106/51 L Pulse Oximetry 98 98 99 10/21/18 08:00 Temperature 98.3 F Pulse Rate 73 Respiratory Rate 16 Blood Pressure 101/59 L Pulse Oximetry 98 Intake & Output 10/20/18 10/21/18 10/21/18 18:59 06:59 18:59 Weight 95.254 kg Other: Date of Last Bowel Movement 10/20/18 Narrative: Awake, looks comfortable, nonverbal mild end gaze nystagmus, face symmetric moves all extremities, no involuntary movements - Constitutional no acute distress - Urinary Catheter Management Straight Cath placed during this visit: yes, but has since been removed by the nurse Reason for continuing: Decision to DC catheter Insertion date: 10/20/18 Insertion time: 09:53 Removal date: 10/20/18 Removal time: 09:55 Objective Laboratory Results - last 24 hr 10/20/18 10/20/18 10/21/18 10:00 10:00 06:30 WBC 8.1 RBC 4.16 Hgb 10.7 L Hct 32.7 L MCV 78.6 L MCH 25.6 L MCHC 32.6 RDW 13.6 Plt Count 323 MPV 8.3 Neut % (Auto) 73.9 H Lymph % (Auto) 18.5 [place] % (Auto) 5.4 Eos % (Auto) 1.5 Baso % (Auto) 0.7 Neut # (Auto) 6.0 Lymph # (Auto) 1.5 [place] # (Auto) 0.4 Eos # (Auto) 0.1 Baso # (Auto) 0.1 WBC Differential . Differential Comment Auto diff final Sodium Potassium Chloride Carbon Dioxide Anion Gap BUN Creatinine Estimated GFR Random Glucose Calcium Iron 74 TIBC 364 % Saturation 20.3 Ferritin 40 Total Bilirubin AST ALT Alkaline Phosphatase Total Creatine Kinase 66 Troponin I Less than 0.02 L Total Protein Albumin Vitamin B12 601 Serum Alcohol Less than 3 10/21/18 06:30 WBC RBC Hgb Hct MCV MCH MCHC RDW Plt Count MPV Neut % (Auto) Lymph % (Auto) [place] % (Auto) Eos % (Auto) Baso % (Auto) Neut # (Auto) Lymph # (Auto) [place] # (Auto) Eos # (Auto) Baso # (Auto) WBC Differential Differential Comment Sodium 141 Potassium 3.6 Chloride 107 Carbon Dioxide 26.8 Anion Gap 7 BUN 9 Creatinine 0.47 L Estimated GFR Greater than 89 Random Glucose 84 Calcium 8.6 Iron TIBC % Saturation Ferritin Total Bilirubin 0.4 AST 9 L ALT 15 Alkaline Phosphatase 79 Total Creatine Kinase Troponin I Total Protein 7.4 Albumin 3.3 L Vitamin B12 Serum Alcohol 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 Discussed with mother that it could cause somnolence, if this were to occur they can reduce it to half a pill twice a day for a couple weeks go back to the full dose DC planning today. Outpatient follow-up Seizure fall precautions No driving
--- NOTE | 2018-10-21 10:43 | P.PNFP ---
Subjective Interval history: Patient seen and examined this morning. No acute events overnight. Vital signs stable. Accompanied by mother this morning. No new seizures. Taking Keppra PO. No other new complaints/concerns today. <Leonoremilee Aroldo Simeon - 10/21/18 10:43> Results - Labs Result diagrams: 10/21/18 06:30 10/21/18 06:30 <Sd Ferreira - 10/21/18 20:48> Abnormal lab results 10/21/18 10/21/18 Range/Units 06:30 06:30 Hgb 10.7 L (11.6-15.3) gm/dL Hct 32.7 L (35.0-46.0) % MCV 78.6 L (80.0-100.0) fL MCH 25.6 L (27.0-34.0) pg Neut % (Auto) 73.9 H (16.0-70.0) % Creatinine 0.47 L (0.50-1.00) mg/dL AST 9 L (16-38) U/L Albumin 3.3 L (3.4-5.0) g/dL Short CBC 10/21/18 Range/Units 06:30 WBC 8.1 (4.0-11.0) th/mm3 Hgb 10.7 L (11.6-15.3) gm/dL Hct 32.7 L (35.0-46.0) % Plt Count 323 (150-450) th/mm3 BMP 10/21/18 06:30 Sodium 141 Potassium 3.6 Chloride 107 Carbon Dioxide 26.8 BUN 9 Creatinine 0.47 L Calcium 8.6 Liver Function 10/21/18 Range/Units 06:30 Total Bilirubin 0.4 (0.2-1.0) mg/dL AST 9 L (16-38) U/L ALT 15 (9-42) U/L Alkaline Phosphatase 79 (45-117) U/L Albumin 3.3 L (3.4-5.0) g/dL <Sd Ferreira - 10/21/18 20:48> Abnormal lab results 10/20/18 10/21/18 10/21/18 Range/Units 10:00 06:30 06:30 Hgb 10.7 L (11.6-15.3) gm/dL Hct 32.7 L (35.0-46.0) % MCV 78.6 L (80.0-100.0) fL MCH 25.6 L (27.0-34.0) pg Neut % (Auto) 73.9 H (16.0-70.0) % Creatinine 0.47 L (0.50-1.00) mg/dL AST 9 L (16-38) U/L Troponin I Less than 0.02 L (0.02-0.05) ng/mL Albumin 3.3 L (3.4-5.0) g/dL Short CBC 10/21/18 Range/Units 06:30 WBC 8.1 (4.0-11.0) th/mm3 Hgb 10.7 L (11.6-15.3) gm/dL Hct 32.7 L (35.0-46.0) % Plt Count 323 (150-450) th/mm3 BMP 10/21/18 06:30 Sodium 141 Potassium 3.6 Chloride 107 Carbon Dioxide 26.8 BUN 9 Creatinine 0.47 L Calcium 8.6 Cardiac Enzymes 10/20/18 Range/Units 10:00 Total Creatine Kinase 66 (26-192) U/L Troponin I Less than 0.02 L (0.02-0.05) ng/mL Liver Function 10/21/18 Range/Units 06:30 Total Bilirubin 0.4 (0.2-1.0) mg/dL AST 9 L (16-38) U/L ALT 15 (9-42) U/L Alkaline Phosphatase 79 (45-117) U/L Albumin 3.3 L (3.4-5.0) g/dL <Aroldo Evans 10/21/18 10:43> - Imaging Impressions Chest X-Ray 10/20/18 00:00 CONCLUSION: No acute cardiopulmonary process. No fracture. Head CT 10/20/18 09:53 CONCLUSION: 1. Diffuse sinusitis. Otherwise negative exam. . <Aroldo Evans 10/21/18 10:43> Physical Exam Vital signs: Vital Signs 10/20/18 23:26 10/21/18 03:40 10/21/18 08:00 Temperature 98.2 F 98.3 F Pulse Rate 101 H 77 73 Respiratory Rate 16 12 16 Blood Pressure 128/61 106/51 L 101/59 L Pulse Oximetry 98 99 98 10/21/18 12:00 10/21/18 16:00 Temperature Pulse Rate 84 97 H Respiratory Rate 16 16 Blood Pressure 111/61 117/65 Pulse Oximetry 96 96 Intake & Output 10/21/18 10/21/18 10/22/18 06:59 18:59 06:59 Other: Date of Last Bowel Movement 10/20/18 10/20/18 <Sd Ferreira L - 10/21/18 20:48> Vital Signs 10/20/18 10:57 10/20/18 12:20 10/20/18 16:00 Temperature 97.8 F 98 F 99.0 F Pulse Rate 94 H 101 H 96 H Respiratory Rate 16 16 18 Blood Pressure 118/70 109/76 117/62 Pulse Oximetry 100 100 98 10/20/18 20:00 10/20/18 23:26 10/21/18 03:40 Temperature 99.5 F 98.2 F Pulse Rate 95 H 101 H 77 Respiratory Rate 12 16 12 Blood Pressure 104/60 128/61 106/51 L Pulse Oximetry 98 98 99 10/21/18 08:00 Temperature 98.3 F Pulse Rate 73 Respiratory Rate 16 Blood Pressure 101/59 L Pulse Oximetry 98 Intake & Output 10/20/18 10/21/18 10/21/18 18:59 06:59 18:59 Weight 95.254 kg Other: Date of Last Bowel Movement 10/20/18 <Aroldo Evans - 10/21/18 10:43> Narrative: GENERAL: Obese appearing female, nonverbal, in no acute distress. SKIN: Warm and dry. CARDIOVASCULAR: No murmur appreciated. No radiation. Regular rate. No tenderness to palpation of the sternum or R sided chest wall. RESPIRATORY: Breath sounds equal bilaterally. No accessory muscle use. GASTROINTESTINAL: Abdomen soft, non-tender, nondistended. MUSCULOSKELETAL: No cyanosis, or edema. BACK: Nontender without obvious deformity. No CVA tenderness. NEURO: Awake, alert. No obvious neurological deficit. <Aroldo Evans - 10/21/18 10:43> - Urinary Catheter Management Straight Cath placed during this visit: no <Sd Ferreira - 10/21/18 20:48> yes, but has since been removed by the nurse <Aroldo Evans 10/21/18 12:22> Reason for continuing: Decision to DC catheter <Aroldo Evans 10:43> Insertion date: 10/20/18 <Aroldo Evans 10/21/18 10:43> Insertion time: 09:53 <Aroldo Evans 10/21/18 10:43> Removal date: 10/20/18 <Aroldo Evans 10/21/18 10:43> Removal time: 09:55 <Aroldo Evans 10/21/18 10:43> Assessment and Plan - Assessment (1) New onset seizure Code(s): R56.9 - Unspecified convulsions Status: Acute (2) Murmur, cardiac Code(s): R01.1 - Cardiac murmur, unspecified Status: Acute (3) Sinusitis Code(s): J32.9 - Chronic sinusitis, unspecified Status: Acute (4) Autism Code(s): F84.0 - Autistic disorder Status: Acute (5) DVT prophylaxis Status: Acute (6) Nutrition, metabolism, and development symptoms Code(s): R63.8 - Other symptoms and signs concerning food and fluid intake Status: Acute <Sd Ferreira 10/21/18 20:48> (1) New onset seizure Code(s): R56.9 - Unspecified convulsions Status: Acute Plan: 18-year-old female with past medical history of autism, family history of seizures, presents with new onset witnessed seizure that lasted approximately 5- 10 minutes. Seems partial with secondary generalization seizure. -Neurology consulted. Appreciate recommendations\ -Started on keppra -EEG pending -Seizure precautions. -Neurochecks every 4 -UDS negative. UA unremarkable. -CT head shows no abnormalities. Sinusitis. -Ativan 2 mg as needed for seizures. (2) Murmur, cardiac Code(s): R01.1 - Cardiac murmur, unspecified Status: Acute Plan: Grade 2 out of 5 systolic murmur appreciated on the right sternal border on admission. No murmur appreciated today. EKG shows normal sinus sinus rhythm. Hold on Echo for now. (3) Sinusitis Code(s): J32.9 - Chronic sinusitis, unspecified Status: Acute Plan: CT head shows sinusitis. Flonase ordered. (4) Autism Code(s): F84.0 - Autistic disorder Status: Acute Plan: 18 year-old female with no past medical history diagnosed with autism at 1 years old in [place]. Family history significant for seizures in brother. -Per family, patient currently at baseline. -At baseline patient bobs her head and rocks back and forth. Also has minimal leg shaking at baseline. -Currently stable. Continue to monitor. -Patient nonverbal but can follow commands. (5) DVT prophylaxis Status: Acute Plan: Lovenox 40 (6) Nutrition, metabolism, and development symptoms Code(s): R63.8 - Other symptoms and signs concerning food and fluid intake Status: Acute Plan: Fluids: Encourage p.o. intake Electrolytes: Within normal limits. Monitor and replete as needed. Nutrition: Regular diet. <Aroldo Evans - 10/21/18 12:21> - Assessment and Plan 18 y/o female presents with new-onset seizures. Started on Keppra. Checking EEG , then f/u with neurology outpatient. <Aroldo Evans - 10/21/18 12:22> - Attending Attestation The exam, history, and the medical decision-making described in the above note were completed with the assistance of the resident physician. I reviewed and agree with the findings presented. I attest that I had a [id number] encounter with the patient on the same day, and personally performed and documented my assessment and findings in the medical record. Seen with resident team this morning. Keppra started by neurology. EEG pending. Unable to obtain MRI given consistent head bobbing by patient. Discussed benefits of genetic analysis outpatient. ECHO is essentially normal. No further seizure like episodes since admission. <Sd Ferreira - 10/21/18 20:48>
--- NOTE | 2018-10-21 11:18 | ECG ---
Date Performed: 10/20/2018 Time Performed: 10:02:39 PTAGE: 18 years EKG: Sinus rhythm POSSIBLE RIGHT VENTRICULAR CONDUCTION DELAY BORDERLINE ECG NO PREVIOUS TRACING DOCTOR: Margarita Fuentes Interpretating Date/Time 10/21/2018 11:16:30
[2018-10-21] MEDS: Enoxaparin Inj 40 MG/0.4 ML Syringe SQ SCH (12:41)
--- NOTE | 2018-10-21 13:10 | ECHRPT ---
Indication: CARDIOMYOPATHY CONCLUSIONS Normal left ventricular size. Wall thickness is normal. The left ventricular systolic function is hyperdynamic with an estimated ejection fraction in the ra nge of 60- 65% There is mild tricuspid valve regurgitation. The estimated pulmonary arterial pressure is 28.1 mmHg. BP: / HR: Rhythm: Sinus MEASUREMENTS (Male / Female) Normal Values Technical Quality:Fair 2D ECHO LV Diastolic Diameter PLAX 4.8 cm 4.2 - 5.9 / 3.9 - 5.3 cm LV Systolic Diameter PLAX 2.9 cm IVS Diastolic Thickness 0.7 cm 0.6 - 1.0 / 0.6 - 0.9 cm LVPW Diastolic Thickness 0.8 cm 0.6 - 1.0 / 0.6 - 0.9 cm LV Relative Wall Thickness 0.3 RV Internal Dim ED PLAX 2.4 cm LVOT Diameter 2.2 cm Aortic Root Diameter 2.9 cm LA Systolic Diameter LX 3.2 cm 3.0 - 4.0 / 2.7 - 3.8 cm M-MODE AV Cusp Separation MM 2.0 cm DOPPLER LVOT Peak Velocity 87.2 cm/s LVOT Peak Gradient 3.0 mmHg LVOT Velocity Time Integral 15.8 cm Mitral E Point Velocity 98.2 cm/s Mitral A Point Velocity 85.9 cm/s Mitral E to A Ratio 1.1 LV E' Lateral Velocity 15.8 cm/s Mitral E to LV E' Lateral Ratio 6.2 LV E' Septal Velocity 10.0 cm/s Mitral E to LV E' Septal Ratio 9.8 TR Peak Velocity 213.0 cm/s TR Peak Gradient 18.1 mmHg Right Atrial Pressure 10.0 mmHg Pulmonary Artery Systolic Pressu 28.1 mmHg Right Ventricular Systolic Press 28.1 mmHg PV Peak Velocity 72.2 cm/s PV Peak Gradient 2.1 mmHg FINDINGS LEFT VENTRICLE Normal left ventricular size. Wall thickness is normal. The left ventricular systolic function is hyperdynamic with an estimated ejection fraction in the ra nge of 60- 65%. RIGHT VENTRICLE Normal right ventricular size and systolic function. LEFT ATRIUM The left atrial size is normal. RIGHT ATRIUM The right atrial size is normal. ATRIAL SEPTUM Normal atrial septal thickness without atrial level shunting by limited color doppler interrogation. AORTA The aortic root and proximal ascending aorta are normal in size on limited imaging. MITRAL VALVE Structurally normal mitral valve. No mitral valve stenosis or regurgitation. AORTIC VALVE Trileaflet aortic valve. No aortic valve stenosis or regurgitation. TRICUSPID VALVE There is mild tricuspid valve regurgitation. The estimated pulmonary arterial pressure is 28.1 mmHg. PULMONARY VALVE No pulmonary valve regurgitation or stenosis. VESSELS The inferior vena cava is normal in size. PERICARDIUM No pericardial effusion. Andrew Gomez MD (Electronically Signed) Final Date:21 October 2018 13:09
[2018-10-21 22:19] VITALS: RESP 18
--- NOTE | 2018-10-21 22:19 | MG ---
cc: Vinh Mendez MD DATE OF STUDY: 10/21/2018 ELECTROENCEPHALOGRAM RECORD NUMBER: [id number] DESCRIPTION: A 9-10 Hz posterior rhythm, 20-50 microvolts, well-formed alpha with good anterior to posterior gradient, beta frontal. Frequent eye movement artifact. Good EEG variability reactivity. Limited drive with photic stimulation. Frequent and continuous eye movements and blink. Single-lead EKG showing sinus rhythm. INTERPRETATION: Normal awake electroencephalogram with frequent eye movement artifact. Clinical correlation. MD JEY Overton/cely , 09:12 PM , 09:17 PM
[2018-10-22 05:54] VITALS: BP 105/62; PULSE 92; TEMP 98.5; O2SAT 98
--- NOTE | 2018-10-22 08:17 | P.DS ---
Date of admission: 10/20/18 11:39 Primary care physician: No Primary Care Physician Brief History from admission: 18 year old female with PMH of autism presents with new onset seizure that happened around 8:45 am. Mom was not present for witnessed seizure and patient is non verbal. Father witnessed seizure. Per dad, the patient was sitting down and watching music videos. She usually bobs her head at baseline, and dad thought initially that she was bobbing her head to the music. She then started twitching her arms first and then progressed to her whole body. Her eyes rolled back into her head and she seemed to lose consciousness. Denies head trauma. Dad states that at the time she stopped breathing, and he started doing mouth to mouth resuscitation through her nose and tried to do some chest compression. He said that the episode lasted 15 minutes but mom questions the length of time the daughter seized and believes it was 5-10 minutes. EMS arrived within 5 minutes, she seemed to be alert and back to baseline at that time. Glucose test was normal. Vomited x2 since arrival. Slightly blood tinged with last emesis. Denies any illnesses recently. Denies any loss of bladder/bowel function during episode. Denies any tongue lacerations during the episode. PMH: Autism. PSH: No Allergies: NKDA Meds: None Social: lives at home with mom and dad and 1 older and 2 younger brothers. Goes to school, positive sick contacts at schools. Vaccinations UTD. No PCP. No exposures to toxins recently. Sees menstrual period regularly, last cycle a couple a days ago and was normal. Diagnosed with autism in [place] at 1 years old. Fam Hx: Father has Diabetes. Brother has febrile seizures and severe autism. Oldest and youngest brother with speech delay. Mother is legal guardian. Never been legally cleared incompetent. ROS: No fevers, night sweats, weight loss. DS: Diagnosis - Discharge Diagnosis (1) New onset seizure Status: Acute (2) Murmur, cardiac Status: Acute (3) Sinusitis Status: Acute (4) Autism Status: Acute (5) DVT prophylaxis Status: Acute (6) Nutrition, metabolism, and development symptoms Status: Acute DS: Medications - Discharge Medications Prescriptions: levetiracetam [Keppra] 500 mg PO BID #60 tab DS: Summary Hospital Course: 18-year-old female with past medical history of autism presents with new onset seizure that was witnessed by father, lasted 5 minutes. Patient was admitted overnight for observation, EEG was ordered and was unremarkable. Neurology consulted recommended starting on Keppra 500 mg twice daily. No other events occurred during admission. Patient was discharged home on 500 mg Keppra twice daily, recommended to follow-up with neurology outpatient. - Time Spent with Patient Total time spent providing and/or coordinating discharge services: Less than 30 minutes - Quality: VTE Deep Vein Thrombosis/Pulmonary Embolism Present on Admission: No Exam Vital signs: Vital Signs 10/21/18 12:00 10/21/18 16:00 10/21/18 20:00 Temperature 98.8 F Pulse Rate 84 97 H 100 H Respiratory Rate 16 16 18 Blood Pressure 111/61 117/65 102/62 Pulse Oximetry 96 96 98 10/22/18 00:00 10/22/18 04:00 Temperature 98.4 F 98.5 F Pulse Rate 90 92 H Respiratory Rate 18 18 Blood Pressure 97/58 L 105/62 Pulse Oximetry 97 98 Intake & Output 10/21/18 10/22/18 10/22/18 18:59 06:59 18:59 Intake Total 240 / 240 Balance 240 / 240 Weight 95.254 kg Intake: Oral 240 / 240 Other: # Voids 2 Date of Last Bowel Movement 10/20/18 10/21/18 Weight On Admission 95.254 kg Narrative: GENERAL: Obese appearing female, nonverbal, in no acute distress. SKIN: Warm and dry. CARDIOVASCULAR: No murmur appreciated. No radiation. Regular rate. No tenderness to palpation of the sternum or R sided chest wall. RESPIRATORY: Breath sounds equal bilaterally. No accessory muscle use. GASTROINTESTINAL: Abdomen soft, non-tender, nondistended. MUSCULOSKELETAL: No cyanosis, or edema. BACK: Nontender without obvious deformity. No CVA tenderness. NEURO: Awake, alert. No obvious neurological deficit. Results Procedures completed during hospitalization: EEG on 10/21/2018. - Impressions ITS Impressions Chest X-Ray 10/20/18 00:00 CONCLUSION: No acute cardiopulmonary process. No fracture. Head CT 10/20/18 09:53 CONCLUSION: 1. Diffuse sinusitis. Otherwise negative exam. . Discharge Plan - Discharge Disposition Patient Disposition: Discharge Home - Discharge Condition Condition: Stable - Discharge Order Discharge Orders: Discharge Order (Routine); Ordered 10/22/18 Ordered By: Gabriela Goncalves R1 ED Use Only Admit Order (Routine); Ordered 10/20/18 [facility]: [facility] Primary Care Provider: Primary Care Aida Moses Attending Provider: Sd Ferreira Other Providers: Vinh Mendez MD
--- NOTE | 2018-10-22 08:17 | P.PNFP ---
Subjective Interval history: Patient seen and examined at bedside this morning. No seizure events or activities overnight. Patient anxious to go home this morning. EEG done successfully with no complications. <Ivanna JohansenGabriela - 10/22/18 08:17> Results - Labs Result diagrams: 10/21/18 06:30 10/21/18 06:30 <Sd Ferreira Han - 10/22/18 16:31> Physical Exam Vital signs: Vital Signs 10/21/18 20:00 10/22/18 00:00 10/22/18 04:00 Temperature 98.8 F 98.4 F 98.5 F Pulse Rate 100 H 90 92 H Respiratory Rate 18 18 18 Blood Pressure 102/62 97/58 L 105/62 Pulse Oximetry 98 97 98 Intake & Output 10/21/18 10/22/18 10/22/18 18:59 06:59 18:59 Intake Total 240 / 240 Balance 240 / 240 Weight 95.254 kg Intake: Oral 240 / 240 Other: # Voids 2 Date of Last Bowel Movement 10/20/18 10/21/18 Weight On Admission 95.254 kg <JhonSd Han - 10/22/18 16:31> Vital Signs 10/21/18 12:00 10/21/18 16:00 10/21/18 20:00 Temperature 98.8 F Pulse Rate 84 97 H 100 H Respiratory Rate 16 16 18 Blood Pressure 111/61 117/65 102/62 Pulse Oximetry 96 96 98 10/22/18 00:00 10/22/18 04:00 Temperature 98.4 F 98.5 F Pulse Rate 90 92 H Respiratory Rate 18 18 Blood Pressure 97/58 L 105/62 Pulse Oximetry 97 98 Intake & Output 10/21/18 10/22/18 10/22/18 18:59 06:59 18:59 Intake Total 240 / 240 Balance 240 / 240 Weight 95.254 kg Intake: Oral 240 / 240 Other: # Voids 2 Date of Last Bowel Movement 10/20/18 10/21/18 Weight On Admission 95.254 kg <DeliaGabriela Pedersen - 10/22/18 08:17> Narrative: GENERAL: Obese appearing female, nonverbal, in no acute distress. SKIN: Warm and dry. CARDIOVASCULAR: No murmur appreciated. No radiation. Regular rate. No tenderness to palpation of the sternum or R sided chest wall. RESPIRATORY: Breath sounds equal bilaterally. No accessory muscle use. GASTROINTESTINAL: Abdomen soft, non-tender, nondistended. MUSCULOSKELETAL: No cyanosis, or edema. BACK: Nontender without obvious deformity. No CVA tenderness. NEURO: Awake, alert. No obvious neurological deficit. <Gabriela Wleler - 10/22/18 08:17> - Urinary Catheter Management Straight Cath placed during this visit: no <Sd Ferreira - 10/22/18 16:31> yes, but has since been removed by the nurse <Gabriela Weller 10/22/18 09:28> Reason for continuing: Decision to DC catheter <Gabriela Weller 10/22/18 08:17> Insertion date: 10/20/18 <Gabriela Weller 10/22/18 08:17> Insertion time: 09:53 <Gabriela Weller 10/22/18 08:17> Removal date: 10/20/18 <Gabriela Weller 10/22/18 08:17> Removal time: 09:55 <Gabriela Weller 10/22/18 08:17> Assessment and Plan - Assessment (1) New onset seizure Code(s): R56.9 - Unspecified convulsions Status: Acute (2) Murmur, cardiac Code(s): R01.1 - Cardiac murmur, unspecified Status: Acute (3) Sinusitis Code(s): J32.9 - Chronic sinusitis, unspecified Status: Acute (4) Autism Code(s): F84.0 - Autistic disorder Status: Acute (5) DVT prophylaxis Status: Acute (6) Nutrition, metabolism, and development symptoms Code(s): R63.8 - Other symptoms and signs concerning food and fluid intake Status: Acute <Sd Ferreira - 10/22/18 16:31> (1) New onset seizure Code(s): R56.9 - Unspecified convulsions Status: Acute Plan: 18-year-old female with past medical history of autism, family history of seizures, presents with new onset witnessed seizure that lasted approximately 5- 10 minutes. Seems partial with secondary generalization seizure. -Neurology consulted. -Started on keppra. No seizures overnight. -EEG WNL -CT head shows no abnormalities. Sinusitis. -D/C home today. F/U with neurology. (2) Sinusitis Code(s): J32.9 - Chronic sinusitis, unspecified Status: Acute Plan: CT head shows sinusitis. Flonase ordered. (3) Autism Code(s): F84.0 - Autistic disorder Status: Acute Plan: 18 year-old female with no past medical history diagnosed with autism at 1 years old in [place]. Family history significant for seizures in brother. -Per family, patient currently at baseline. -At baseline patient bobs her head and rocks back and forth. Also has minimal leg shaking at baseline. -Currently stable. Continue to monitor. -Patient nonverbal but can follow commands. (4) DVT prophylaxis Status: Acute Plan: Lovenox 40 (5) Nutrition, metabolism, and development symptoms Code(s): R63.8 - Other symptoms and signs concerning food and fluid intake Status: Acute Plan: Fluids: Encourage p.o. intake Electrolytes: Within normal limits. Monitor and replete as needed. Nutrition: Regular diet. <Gabriela Weller 10/22/18 09:28> - Assessment and Plan 18 y/o female presents with new-onset seizures. Started on Keppra. EEG WNL. D/C home then f/u with neurology outpatient. <Gabriela Weller 10/22/18 09:28> Discharge Planning: Today. <Gabriela Weller 10/22/18 09:28> - Attending Attestation I discussed management plan with resident team. I agree with documented plan above. Agree with neurology follow up as an outpatient. She will continue Keppra in case of epilepsy. Also agree with following up with grinder mill operator given family history of neurodevelopmental disorders. I was not able to see the patient before she left today. <Sd Ferreira - 10/22/18 16:31>
[2018-10-22] MEDS: levETIRAcetam 500 MG Tablet PO SCH (09:12)
[2018-10-22] MEDS: Senna/Docusate Sodium 8.6/50 MG Tablet PO SCH (09:12)
== END 2018-10-22 09:32 | disposition home or self-care (01) ==
LOC: NEPE 09:31 → NEDA 11:39 → INTOOBSV 11:39 → NEDA 14:45 → NEPGCP 15:30
PROVIDERS: ADMIT Family Medicine; ATTEND Family Medicine
CPT/HCPCS: 70450; 71020; 71046; 80048; 80053; 80307; 81001; 82550; 82607; 82728; 83540; 83550; 83735; 84425; 84484; 84703; 85025; 90774; 90784; 93005; 93306; 95819; 96374; 99285; C8952; G0378; J1650; J2405; P9612